=== PATIENT | female | born 1975 | race Two or more races ===

== ENCOUNTER 2021-08-11 15:51 | Emergency (ER) | payer OTHER ==
[~2021-08-11] VITALS: Ht 152.4 cm; Wt 59.0 kg
[2021-08-11] MEDS ORDERED: PANADOL (16:45)
[2021-08-11] MEDS ORDERED: METHYLPREDNISOLO4 M1 (16:46)
[2021-08-11] MEDS ORDERED: ASPIRINA 81 MG. (16:46)
== END 2021-08-11 20:49 | disposition home or self-care (01) ==
LOC: ER 15:51
DX: B34.9 Viral infection, unspecified (principal); R51.9 Headache, unspecified; Z86.16 Personal history of COVID-19; Z09 Encounter for follow-up examination after completed treatment for conditions other than malignant neoplasm

== ENCOUNTER 2021-08-15 13:22 | Emergency (ER) | payer OTHER ==
[~2021-08-15] VITALS: Ht 152.4 cm; Wt 59.0 kg
[~2021-08-15 13:22] MED LIST: ASPIRINA 81 MG.; METHYLPREDNISOLO4 M1; PANADOL
[2021-08-15] MEDS ORDERED: ORPHENADRINE C100 MG PO (14:31)
[2021-08-15] MEDS ORDERED: DICLOFENAC POTA50 MG PO (14:31)
== END 2021-08-15 16:17 ==
LOC: ER 13:22
DX: M62.830 Muscle spasm of back (principal)

== ENCOUNTER 2021-08-21 02:52 | Emergency (ER) | payer OTHER ==
[~2021-08-21] VITALS: Ht 165.1 cm; Wt 68.0 kg
[~2021-08-21 02:52] MED LIST changes: +DICLOFENAC POTA50 MG PO; +ORPHENADRINE C100 MG PO
[2021-08-21] MEDS ORDERED: NORFLEX100MG PO (04:51)
[2021-08-21] MEDS ORDERED: ACETAMINOPHEN650 M2 PO (04:51)
== END 2021-08-21 05:47 | disposition home or self-care (01) ==
LOC: ER 02:52
DX: B34.9 Viral infection, unspecified (principal)